=== PATIENT | female | born 1960 | race African-American/Black ===

== ENCOUNTER 2022-12-25 12:32 | Emergency (ER) | payer MEDICAID ==
[~2022-12-25] VITALS: Ht 165.1 cm; Wt 54.4 kg
[2022-12-25 12:56] VITALS: BP_SYST 165; PULSE 113; RESP 16; TEMP 97.7; O2SAT 99
[2022-12-25] MEDS ORDERED: KETOROLAC TROMETHAMINE 30 MG VIAL IM ONE (13:00)
[2022-12-25] MEDS ORDERED: PROCHLORPERAZINE EDISYLATE 10 MG/2 ML VIAL IM ONE (13:00)
--- NOTE | 2022-12-25 13:10 | NUR ---
TRIAGED PT AND PLACED IN BED 3. PT BIBS FROM HOME WITH C/O H/A / AND LEFT EYE BLURRINESS FOR ONE MONTH. LEFT EYE REDNESS NOTED. PT IS AAOX4, PERRL. ON R/A. DENIES N/V/D/C. SKIN CDI, NO EDEMA. SIDERAILS UP X2.
--- NOTE | 2022-12-25 13:11 | NUR ---
DR. GONZALEZ AT BEDSIDE TO ASSESS PT.
--- NOTE | 2022-12-25 13:15 | NUR ---
TORADOL 30MG IM GIVEN TO RIGHT DELTOID, AND COMPAZINE 5MG IM TO LEFT DELTOID FOR H/A AND EYE PAIN 10. BOTH SITES COVERED WITH BANDAID.
--- NOTE | 2022-12-25 13:35 | NUR ---
CT SCAN COMPLETED, PT BACK IN ROOM 3 AND PLACED ON MONITOR.
[2022-12-25] MEDS ORDERED: TRAM50TA2 PO (14:49)
[2022-12-25 15:00] VITALS: BP_SYST 154; PULSE 99; RESP 18; TEMP 97.8; O2SAT 99
--- NOTE | 2022-12-25 15:00 | NUR ---
Patient given written and verbal discharge instructions and verbalizes understanding. ER MD discussed with patient the results and treatment provided. Patient in stable condition. ID arm band removed. Rx of TRAMADOL given. Patient educated on pain management and to follow up with PMD. Pain Scale 0/10. Opportunity for questions provided and answered. Medication side effect fact sheet provided.
== END 2022-12-25 15:00 | disposition home or self-care (01) ==
LOC: SED 12:32
DX: G43.909 Migraine, unspecified, not intractable, without status migrainosus (principal); Z79.899 Other long term (current) drug therapy
CPT/HCPCS: 99285; 70450; 76376; 96372; J1885; J0780